=== PATIENT | female | born 1985 | race Caucasian/White ===

== ENCOUNTER 2019-03-07 11:42 | Day surgery (SDC) | payer OTHER ==
[~2019-03-07 11:42] MED LIST: ACETAMINOPHEN 325 MG TABLET PO PRN; IBUPROFEN 800 MG in NORMAL SALINE 250 ML IV PRN; LIDOCAINE 0.5% INJ-PF (5 MG/ML) 50 ML SDV SUBCUT PRN; VANCOMYCIN HCL 1,000 MG in DEXTROSE 5%-WATER 250 ML IV PRN
[2019-03-07] MEDS ORDERED: ACETAMINOPHEN 325 MG TABLET ONE (12:53)
[2019-03-07] MEDS ORDERED: SCOPOLAMINE HYDROBROMIDE 1.5 MG PATCH.TD72 TD PRN (13:21)
[2019-03-07] MEDS ORDERED: ONDANSETRON HCL INJ/PF 4 MG/2 ML SDV IV PRN (13:22)
[2019-03-07] MEDS ORDERED: ALBUTEROL SULFATE 0.083% NEB 2.5 MG/3 ML AMPUL NEB ONE (13:25)
[2019-03-07] MEDS ORDERED: SCOPOLAMINE HYDROBROMIDE 1.5 MG PATCH.TD72 ONE (13:25)
[2019-03-07] MEDS ORDERED: ONDANSETRON HCL INJ/PF 4 MG/2 ML SDV ONE ×2 (13:25→14:21)
[2019-03-07] MEDS ORDERED: RINGERS SOLUTION,LACTATED 1,000 ML IV PRN (13:35)
[2019-03-07] MEDS ORDERED: BUPIVACAINE HCL 0.25 % INJ/PF (2.5 MG/1 ML) 30 ML VIAL ONE (14:17)
[2019-03-07] MEDS ORDERED: LIDOCAINE 1% INJ-PF (10 MG/ML) 30 ML SDV ONE (14:17)
[2019-03-07] MEDS ORDERED: FENTANYL CITRATE INJ/PF 100 MCG/2 ML AMPUL ONE ×2 (14:21→16:03)
[2019-03-07] MEDS ORDERED: DEXAMETHASONE SOD PHOSPHATE INJ 4 MG/1 ML VIAL ONE (14:21)
[2019-03-07] MEDS ORDERED: MIDAZOLAM 2 MG/2 ML INJ ONE (14:21)
[2019-03-07] MEDS ORDERED: PROPOFOL INJ 200 MG/20 ML VIAL IV ONE ×2 (14:21→14:50)
[2019-03-07] MEDS ORDERED: DIPHENHYDRAMINE HCL 50 MG/ML VIAL ONE (14:44)
[2019-03-07] MEDS ORDERED: FAMOTIDINE INJ/PF 20 MG/2 ML SDV IV ONE (14:44)
[2019-03-07] MEDS ORDERED: FENTANYL CITRATE INJ/PF 100 MCG/2 ML AMPUL IV PRN ×3 (15:05)
[2019-03-07] MEDS ORDERED: PROMETHAZINE HCL INJ 25 MG/1 ML VIAL IV PRN (15:05)
[2019-03-07] MEDS ORDERED: DIPHENHYDRAMINE HCL 50 MG/ML VIAL IV PRN (15:05)
[2019-03-07] MEDS ORDERED: MEPERIDINE HCL/PF INJ 25 MG/1 ML DISP.SYRIN IV PRN (15:05)
[2019-03-07] MEDS ORDERED: HYDROCODONE/ACETAMINOPHEN 5-325 MG TABLET PO PRN (16:25)
[2019-03-07] MEDS ORDERED: HYDROCODONE/ACETAMINOPHEN 5-325 MG TABLET ONE (16:50)
[2019-03-07 19:11] VITALS: BP 105/68
--- NOTE | 2019-03-15 11:50 | Discharge Summary ---
Discharge Summary (SDC) - Discharge Final Diagnosis: Lumbar hernia, right side Date of Surgery: 03/07/19 Discharge Date: 03/07/19 Condition: Stable Forms: ASU Anesthesia D/C Instruction, Discharge POC-Surgical Service Treatment or Instructions: Discharge home. Diet as tolerated. Activity: No strenuous activity. Follow-up with me in 10 to 14 days. Referrals: JOANNE COX MD [ACTIVE STAFF] - [facility] [Primary Care Provider] - Discharge Diet: As Tolerated Respiratory Treatments at Home: Deep Breathing/Coughing, Incentive Spirometer Discharge Activity: Balance Activity w/Rest, No Lifting Over 10 Pounds, No Lifting/Push/Pulling Report the Following to Your Physician Immediately: Shortness of Breath, Nausea, Vomiting, Increase in Pain, Fever over 101 Degrees, Unusual Bleeding, Redness, Swelling, Warmth, Drainage-Yellow, Drainage-Foul Smelling, IV Site Infection Signs
--- NOTE | 2019-03-15 11:52 | Operative Report ---
Nonrecallable Operative Report DATE OF SURGERY: 03/07/19 PREOPERATIVE DIAGNOSIS: Right-sided lumbar hernia POSTOPERATIVE DIAGNOSIS: Right-sided lumbar hernia OPERATION: Repair of right sided lumbar hernia SURGEON: JOANNE COX ANESTHESIA: LMAC TISSUE REMOVED OR ALTERED: Herniated fat from the lumbar triangle COMPLICATIONS: None apparent ESTIMATED BLOOD LOSS: Minimal PROCEDURE: Procedure in detail: After informed consent was obtained, the patient was brought to the operating room and laid in the left lateral decubitus position. An incision was created over the area of bulge, and the right lower back. The incision was carried through the subcutaneous tissue using sharp and blunt dissection. There was a large amount of fatty tissue protruding through the lumbar triangle, confirming a lumbar hernia. The fatty tissue was debrided away sharply. The lumbar hernia defect was then easily identified. The lumbar hernia defect was closed using 0 Prolene suture in [id number] fashion, x4. After sutures were placed, the hernia defect appeared to be adequately closed. Once this was confirmed, the subcutaneous tissues were closed using 3-0 Vicryl suture. The overlying skin was closed using 4-0 Vicryl Rapide suture in subcuticular fashion. A dressing was placed, and the procedure was concluded. All sponge, instrument, and needle counts were correct x2. Condition: Stable.
== END 2019-03-07 17:50 | disposition home or self-care (01) ==
LOC: OROUT 11:42
PROVIDERS: ATTEND Surgery
DX: K45.8 Other specified abdominal hernia without obstruction or gangrene (principal); Z88.0 Allergy status to penicillin; Z88.2 Allergy status to sulfonamides; Z87.891 Personal history of nicotine dependence
CPT/HCPCS: 81025; 00300; 49540; J2250; J1100; J1200; J3010; J3490; J2405; J7060; J7050; J2704; J3370; S0028; J1741; 300